=== PATIENT | female | born 1970 | race Hispanic/Latino ===

== ENCOUNTER → 2023-09-26 | Outpatient (CLI) | payer SELFPAY | END | disposition home or self-care (01) | LOC: RAH 08:16 | PROVIDERS: ATTEND Internal Medicine | DX: Z13.6 Encounter for screening for cardiovascular disorders (principal) | CPT/HCPCS: 75571 ==

== ENCOUNTER → 2023-12-13 | Outpatient (CLI) | payer BC, SELFPAY | END | disposition home or self-care (01) | LOC: SHCH 08:04 | PROVIDERS: ATTEND Internal Medicine Cardiovascular Disease | DX: I34.0 Nonrheumatic mitral (valve) insufficiency (principal); R06.00 Dyspnea, unspecified | CPT/HCPCS: 93306 ==

== ENCOUNTER → 2025-04-19 | Outpatient (CLI) | payer BC ==
--- NOTE | 2025-04-19 10:54 | HMCIMG ---
Exam Type: US ABDOMINAL RUQ\E\LTD Clinical Information: ABN LFTS Comparison: None Findings: The liver shows normal echogenicity and size. No hepatic lesions are seen. Doppler evaluation shows patent portal and hepatic veins. The gallbladder is surgically absent. No bile duct dilatation is noted. The common bile duct measures 7 mm. The right kidney measures 10.5 x 5 cm, and shows no hydronephrosis or calculi, masses or other abnormalities. Simple cyst right renal upper pole 13 mm The pancreas is unremarkable. IMPRESSION: S/P CHOLECYSTECTOMY. OTHERWISE NORMAL RIGHT UPPER QUADRANT ABDOMINAL ULTRASOUND.
== END | disposition home or self-care (01) ==
LOC: RAH 09:52
PROVIDERS: ATTEND Internal Medicine
DX: N28.1 Cyst of kidney, acquired (principal); Z90.49 Acquired absence of other specified parts of digestive tract
CPT/HCPCS: 76705

== ENCOUNTER → 2025-09-10 | Outpatient (CLI) | payer BC ==
--- NOTE | 2025-09-10 15:15 | HMCIMG ---
EXAM: US Abdomen, Right Upper Quadrant. CLINICAL HISTORY: R10.13 ??? Dyspepsia and bloating. TECHNIQUE: Right upper quadrant sonography performed with image documentation. COMPARISON: None. FINDINGS: LIVER: Liver measures 15.0 cm and demonstrates mildly coarse, increased echotexture consistent with fatty infiltration. No focal hepatic lesion. GALLBLADDER: Gallbladder surgically removed. No abnormal fluid collection in the gallbladder fossa. COMMON BILE DUCT: CBD measures 3 mm ??? within normal limits. PANCREAS: Visualized portions are unremarkable. RIGHT KIDNEY: Measures 10.1 ??? 4.5 ??? 4.8 cm. A simple cyst is noted in the lower pole measuring 1.6 ??? 1.4 ??? 1.8 cm. No hydronephrosis or renal calculi. IMPRESSION: * Status post cholecystectomy. * Mildly fatty, coarsened liver parenchyma. * Simple right renal cyst (1.6 ??? 1.4 ??? 1.8 cm) at the lower pole. * No biliary dilatation or acute abnormality identified. /[place]
== END | disposition home or self-care (01) ==
LOC: RAH 09:55
PROVIDERS: ATTEND Internal Medicine
DX: N28.1 Cyst of kidney, acquired (principal); R10.13 Epigastric pain; R14.0 Abdominal distension (gaseous); K76.89 Other specified diseases of liver; Z90.49 Acquired absence of other specified parts of digestive tract
CPT/HCPCS: 76705